=== PATIENT | female | born 1980 | race African-American/Black ===

== ENCOUNTER 2020-08-28 15:17 | Emergency (ER) | payer OTHER ==
[~2020-08-28] VITALS: Ht 157.5 cm; Wt 63.0 kg
[2020-08-28 16:23] LABS: CLARITY URINE CLEAR (CLEAR); COLOR URINE YELLOW (YELLOW); KETONES URINE TRACE (NEGATIVE); LEUKOCYTE ESTERASE URINE TRACE (NEGATIVE); NITRITE URINE NEGATIVE (NEGATIVE); OCCULT BLOOD URINE 1+ (NEGATIVE); PH URINE 6.5 (4.5-8.0); PROTEIN URINE TRACE (NEGATIVE); SPECIFIC GRAVITY URINE 1.023 (1.005-1.030)
[2020-08-28 17:18] LABS: BASOPHILS % 0.4 % (0.0-2.0); EOSINOPHILS % 0.3 % (0.0-5.0); HEMATOCRIT. 37.1 % (36.0-48.0); HEMOGLOBIN. 12.3 g/dL (12.0-16.0); LYMPHOCYTES % 32.9 % (20.0-50.0); MEAN CORPUSCULAR HEMOGLOBIN 30.6 pg (28.0-32.0); MEAN PLATELET VOLUME 7.8 fl (7.4-10.4); MONOCYTES % 12.9 % (2.0-8.0); NEUTROPHILS % 53.5 % (40.0-76.0); PLATELET 330 x1000/uL (130-400); RED BLOOD CELL COUNT 4.04 mill/uL (4.2-5.4); RED CELL DISTRIBUTION WIDTH 12.6 % (11.6-14.6)
[2020-08-28 17:20] LABS: CHLORIDE 105 mEq/L (98-107)
[2020-08-28 17:25] LABS: INR 1.1; PROTHROMBIN TIME 11.8 sec (9.6-11.0)
[2020-08-28 17:55] LABS: B-HCG QUANTITATIVE 15617 mIU/mL (<3)
[2020-08-28 18:15] VITALS: BP 102/66
== END 2020-08-28 18:16 | disposition home or self-care (01) ==
LOC: ER 15:17
DX: O26.891 Other specified pregnancy related conditions, first trimester (principal); Z3A.01 Less than 8 weeks gestation of pregnancy; O16.1 Unspecified maternal hypertension, first trimester
CPT/HCPCS: 36415; 76801; 80053; 81003; 81025; 84702; 85025; 86900; 93005; 99284; 99285

== ENCOUNTER 2020-11-01 12:39 | Emergency (ER) | payer OTHER ==
[~2020-11-01] VITALS: Ht 157.5 cm; Wt 60.0 kg
[2020-11-01 12:45] VITALS: BP 129/85
[2020-11-01] MEDS ORDERED: ACETAMINOPHEN 325MG TABLET PO ONE (13:45)
[2020-11-01] MEDS ORDERED: TOPUD MT (13:57)
== END 2020-11-01 14:17 | disposition short-term general hospital (02) ==
LOC: ER 12:39
DX: M54.9 Dorsalgia, unspecified (principal); O26.899 Other specified pregnancy related conditions, unspecified trimester; I10 Essential (primary) hypertension
CPT/HCPCS: 99282